=== PATIENT | male | born 1955 | race Caucasian/White ===

== ENCOUNTER 2018-10-26 11:07 | Emergency (ER) | payer OTHER ==
[~2018-10-26] VITALS: Ht 160 cm; Wt 60.0 kg
[2018-10-26 11:13] VITALS: BP 170/85; PULSE 85; RESP 18; Ht 160 cm; Wt 60.0 kg
[2018-10-26] MEDS ORDERED: SULF1TAB31 PO (12:48)
[2018-10-26] MEDS ORDERED: CEPH-443 PO (12:48)
[2018-10-26] MEDS: ONDANSETRON (ODT) 4 MG TAB ODT STA ×2 (12:57→13:09)
[2018-10-26] MEDS: HYDROCODONE/APAP (5/325) TAB PO ONE ×3 (12:58→13:09)
[2018-10-26] MEDS ORDERED: IBUP800T48 PO (13:05)
--- NOTE | 2018-10-26 14:02 | ERD ---
ER Documentation Chief Complaint Chief Complaint wound check states wound on back of head infected HPI 63-year-old male presenting for wound check. Patient had an abscess in the back of his head that started oozing yesterday. No fevers. Has had this before. Has much pain at the site. Denies other medical problems. NKDA. Surgical history denies. Social history denies ROS All systems reviewed and are negative except as per history of present illness. Medications Home Meds Active Scripts Ibuprofen* (Motrin*) 800 Mg Tab, 800 MG PO Q6, #30 TAB Prov:SHAW JAMES PA-C 10/26/18 Cephalexin* (Keflex*) 500 Mg Capsule, 500 MG PO QID for 7 Days, CAP Prov:SHAW JMAES PA-C 10/26/18 Sulfamethoxazole/Trimethoprim* (Bactrim Ds* Tablet) 1 Each Tablet, 1 TAB PO BID, #14 TAB Prov:SHAW JAMES PA-C 10/26/18 Allergies Allergies: Coded Allergies: No Known Allergy (Unverified , 10/26/18) PMhx/Soc History of Surgery: Yes (GALLBLADDER) Anesthesia Reaction: No Hx Neurological Disorder: No Hx Respiratory Disorders: No Hx Cardiac Disorders: No Hx Psychiatric Problems: No Hx Miscellaneous Medical Probl: No Hx Alcohol Use: No Hx Substance Use: No Hx Tobacco Use: Yes Smoking Status: Current every day smoker FmHx Family History: No diabetes, No coronary disease, No other Physical Exam Vitals Vital Signs Date Temp Pulse Resp B/P (MAP) Pulse Ox O2 O2 Flow FiO2 Time Delivery Rate 10/26/18 98.1 85 18 170/85 99 11:13 (113) Physical Exam GENERAL: The patient is well-appearing, well-nourished, in no acute distress HEENT: Atraumatic. Conjunctivae are pink. Pupils equal, round, and reactive to light. There is no scleral icterus. Tympanic membranes clear bilaterally. Oropharynx clear. CHEST: Clear to auscultation bilaterally. There are no rales, wheezes or rhonchi. HEART: Regular rate and rhythm. No murmurs, clicks, rubs or gallops. NEUROLOGIC: Alert and oriented. Cranial nerves II through XII intact. Motor strength in all 4 extremities with 5 out of 5 strength. Sensation grossly intact. Normal speech and gait. SKIN: Erythema noted to the left occipital scalp. Purulent drainage. No f luctuance. Mild induration. Results 24 hrs Current Medications Medications Dose Sig/Iveth Start Time Status Last (Trade) Ordered Route PRN Stop Time Admin Dose Reason Admin 1 tab ONCE ONCE 10/26/18 DC 10/26/18 Acetaminophen PO 13:00 13:09 / 10/26/18 13:01 Hydrocodone Bitart ([place] (5/325)) Ondansetron 4 mg ONCE STAT 10/26/18 DC 10/26/18 HCl (Zofran ODT 12:54 13:09 Odt) 10/26/18 12:55 Procedures/MDM ER course: [place] given ED. MDM: 63-year-old male presenting with abscess. Patient will be discharged with oral antibiotics and recommended follow-up with primary care. Patient is recommended to apply warm compresses to the drainage site. There is no indication for incision and drainage at site is already draining. All questions answered at discharge Departure Diagnosis: Primary Impression: Abscess Condition: Stable Patient Instructions: Abscess, Antiobiotic Treatment Only Referrals: [facility] YOU HAVE RECEIVED A MEDICAL SCREENING EXAM AND THE RESULTS INDICATE THAT YOU DO NOT HAVE A CONDITION THAT REQUIRES URGENT TREATMENT IN THE EMERGENCY DEPARTMENT. FURTHER EVALUATION AND TREATMENT OF YOUR CONDITION CAN WAIT UNTIL YOU ARE SEEN IN YOUR DOCTORS OFFICE WITHIN THE NEXT 1-2 DAYS. IT IS YOUR RESPONSIBILITY TO MAKE AN APPOINTMENT FOR FOLOW-UP CARE. IF YOU HAVE A PRIMARY DOCTOR --you should call your primary doctor and schedule an appointment IF YOU DO NOT HAVE A PRIMARY DOCTOR YOU CAN CALL OUR PHYSICIAN REFERRAL HOTLINE AT IF YOU CAN NOT AFFORD TO SEE A PHYSICIAN YOU CAN CHOSE FROM THE FOLLOWING [facility] [address] [facility]. [facility] [address] [facility] [facility] [place] [address] [facility]. [facility] [address] [facility]. [facility] [address] [facility]. [facility]. [address] Additional Instructions: FOLLOW UP WITH YOUR PRIMARY CARE PHYSICIAN TOMORROW.Return to this facility if you are not improving as expected. SHAW JAMES PA-C Oct 26, 2018 14:02
== END 2018-10-26 13:00 | disposition home or self-care (01) ==
LOC: FTE 11:07
DX: L02.811 Cutaneous abscess of head [any part, except face] (principal); F17.210 Nicotine dependence, cigarettes, uncomplicated
CPT/HCPCS: Z7502; Z7610; 99283

== ENCOUNTER 2019-02-18 22:39 | Emergency (ER) | payer OTHER ==
[~2019-02-18] VITALS: Ht 175.3 cm; Wt 70.9 kg
[~2019-02-18 22:39] MED LIST: CEPH-443 PO; CLIN300C10 PO; IBUP-1542 PO; IBUP800T48 PO; SULF1TAB31 PO
[2019-02-18 22:46] VITALS: Ht 175.3 cm; Wt 70.9 kg
[2019-02-18] MEDS ORDERED: KETOROLAC 30 MG INJ IV STA (23:24)
[2019-02-18] MEDS ORDERED: SODIUM CHLORIDE 0.9% 1L BAG IV* STA (23:24)
[2019-02-18] MEDS ORDERED: CLINDAMYCIN 900 MG (PMX) 50 ML IVPB STA (23:24)
[2019-02-19 00:46] VITALS: BP 137/87; PULSE 76; RESP 19
== END 2019-02-19 00:46 | disposition home or self-care (01) ==
LOC: E/R 22:39
DX: L03.114 Cellulitis of left upper limb (principal); F15.90 Other stimulant use, unspecified, uncomplicated; F17.210 Nicotine dependence, cigarettes, uncomplicated; M79.642 Pain in left hand
CPT/HCPCS: 36415; 80053; 83605; 85025; 87040; 93005; 96374; 96375; J1885; J7030; Z7502; Z7610